=== PATIENT | male | born 1945 | race Caucasian/White ===

== ENCOUNTER 2017-01-04 21:49 | Inpatient (IN) | payer BC ==
--- NOTE | ~2017-01-04 | CN ---
Consultation Report [facility] [address] [place]. [address] NAME: COY CATALAN : 43 STATUS : ADM Zaina PAT#: [id number] AGE: 71 ADM/REG DATE : 01/04/17 MR#: [id number] REPORT SERV DATE: 01/05/17 DICTATED BY: GARCIA RODRÍGUEZ DATE: 01/05/17 REPORT STATUS : Draft TRANSCRIBED BY: MODPj DATE: 01/05/17 DATE OF CONSULTATION: REASON FOR CONSULTATION: Mr. Coy Catalan is a 71-year-old male, who is referred for increasing dyspnea with minor chest pain. CVG PHYSICIAN: Coy Gomez M.D. HISTORY OF PRESENT ILLNESS: Approximately one week ago, he began to develop more shortness of breath. This crescendoed and today, he was very short of breath and came to emergency room. He was found to be in volume overload. During this time, he said he had a little bit of chest pain, he said it was fleeting in his left chest. Did not seem to be related to any specific activity, time, or pattern. His primary complaint was shortness of breath. REVIEW OF SYSTEMS: Negative for fever, chills, lower extremity edema, orthopnea, palpitations, syncope, or presyncope. Rest is negative. SOCIAL HISTORY: He is a former smoker. Family is in attendance. He is fairly inactive. FAMILY HISTORY: Primarily positive for COPD. PHYSICAL EXAMINATION: VITAL SIGNS: Blood pressure is 127/62, pulse is 52. He currently is afebrile. GENERAL: Resting comfortably in bed. Nutritional status appears adequate. EYES: PERRLA. LUNGS: No labored use of accessory muscles. Without rales or wheezes. COR: PMI is not displaced. No thrills or heaves. NL S1 and S2. No S3, murmur, click, or rub. PULSES: Carotids without bruits. ABD: +BS, nontender. EXT: No cyanosis, clubbing, or edema. SKIN: No petechiae. NEURO: Alert and oriented. Does not appear anxious or depressed. LABORATORY EVALUATION: 1. Creatinine is 3. 2. Troponin is 0.1 and has not changed, we will check one in the morning. 3. EKG shows right bundle-branch block with no acute changes. ASSESSMENT: At this time, he has significant risk factors for coronary disease, but no clear anginal pattern. We will start a baby aspirin at this time. Elevated troponin is probably secondary to renal insufficiency. Defer diuresis to Nephrology. Consultation Report [place] [place] [id number] [place]. [address] NAME: COY CATALAN : 43 STATUS : ADM Zaina PAT#: [id number] AGE: 71 ADM/REG DATE : 01/04/17 MR#: [id number] REPORT SERV DATE: 01/05/17 DICTATED BY: GARCIA RODRÍGUEZ DATE: 01/05/17 REPORT STATUS : Draft TRANSCRIBED BY: LUCI DATE: 01/05/17 JOHN/LUCI Garcia Rodríguez M.D. / [id number] CC: Berenice Aguilar Jr, M.D.
--- NOTE | ~2017-01-04 | HP ---
History And Physical [place] [id number] [facility] [place]. [address] NAME: COY VALVERDE : 43 STATUS : ADM Zaina PAT#: [id number] AGE: 71 ADM/REG DATE : 01/04/17 MR#: [id number] REPORT SERV DATE: 01/05/17 DICTATED BY: SYEDA CHANDRA JR DATE: 01/04/17 REPORT STATUS : Draft TRANSCRIBED BY: MODPj DATE: 01/04/17 DATE OF ADMISSION: 01/04/2017 CHIEF COMPLAINT: Shortness of breath. HISTORY: A 71-year-old male, who has been experiencing trouble with increasing shortness of breath over the last several weeks, though he has shortness of breath on a chronic basis and is labeled as having COPD. He sees Dr. Coy Gomez on a regular basis, but the patient states he just sees him for a checkup, patient is not aware of cardiovascular disease issues. He is a reformed smoker. He carries a diagnosis of chronic obstructive pulmonary disease and is on several inhalers. Today, because of the progression of shortness of breath, he presented to the [facility] Emergency Department, where the attending physician there felt that it was important that he be evaluated for cardiovascular disease activity. Troponin was 0.01. EKG is compromised by the presence of a bundle-branch block. Gentleman this evening clearly states this is more of a shortness of breath issue, though and his history to other examiners, there has been a suspicion of chest pain or chest heaviness. He denies arm radiation, jaw pain, nausea or vomiting, diaphoresis, syncope or near syncope. He also denies orthopnea and PND. He has no lower extremity edema. He still makes pretty good urinary output and is on a loop and distally acting diuretic. He is a diabetic taking some insulin. He is on antihypertensive agents. He states he has never been diagnosed with heart attack. He does not know what the cause of his kidney failure is. The duration of diabetes is indeterminate. MEDICATIONS: Include amlodipine, aspirin, PhosLo, vitamin D, clonidine, doxazosin, Lexapro, iron sulfate, furosemide, gabapentin, hydralazine, Tresiba, Combivent, loratadine, metolazone, montelukast, omeprazole, oxycodone, pravastatin, tramadol. ALLERGIES: STATED TO ROBAXIN. FAMILY HISTORY: Unclear about cardiovascular disease, no ESRD or diabetes. SOCIAL HISTORY: Reformed smoker. Retired. . REVIEW OF SYSTEMS: Not otherwise identifiable for head, neck, other pulmonary, other cardiac, GI, , musculoskeletal, neurological, integumentary, psychiatric, or genitourinary complaints. PHYSICAL EXAMINATION: GENERAL: Obese, white male, who is awake, alert, oriented, in no acute distress. He is sitting up on the side of the bed in no acute distress. There is no increased work of breathing, though he is wearing supplemental oxygen at my direction. HEENT: Cranium is normocephalic. No alopecia. Pupils are equal. No scleral icterus. No arcus senilis. No conjunctival injection. No periorbital edema. No epistaxis or other nasal discharge. Nares are patent. Face is symmetrical. Oropharynx with moist mucous membranes. Dental repair fair. History And Physical [address] [address] NAME: COY VALVERDE : 43 STATUS : ADM Zaina PAT#: [id number] AGE: 71 ADM/REG DATE : 01/04/17 MR#: [id number] REPORT SERV DATE: 01/05/17 DICTATED BY: SYEDA CHANDRA JR DATE: 01/04/17 REPORT STATUS : Draft TRANSCRIBED BY: LUCI DATE: 01/04/17 NECK: No carotid bruits heard. Venous distention not seen, but he is at 90 degrees. Adenopathy is not felt. Trachea is midline. Range of motion is good. LUNGS: Clear to auscultation, though the breath sounds may be somewhat diminished. Air entry is symmetrical. There is no increased work of breathing. No adventitial sounds. No cough. HEART: Tones regular, though the heart sounds are muffled/distant. Gallop or rub is not appreciated. ABDOMEN: Protuberant, soft, nontender without visceromegaly being palpable. There is no guarding or tenderness. Liver edge is not distended. Bruits are not heard. GENITALIA: Deferred. BACK: Tender to palpation over the lower lumbar. EXTREMITIES: With no edema, turgor are fair, no cyanosis or clubbing is appreciated. NEUROLOGICAL: Strength appears symmetrical. Gait is not currently tested. Cognition and speech are normal. Facial symmetry is present. Moves all. DTRs diminished at the knee jerks. PSYCHIATRIC: Affect is normal, he interacts well with examiner. Laboratory data is reviewed. Troponin was 0.01. EKG right bundle-branch block. Chest x- ray, I have not currently viewed. ASSESSMENT: 1. Plus/minus chest pain, plus/minus dyspnea. 2. Unknown cardiac substrate. 3. Chronic obstructive pulmonary disease. 4. End-stage renal disease. PLAN: Topical nitrates. Aspirin has been administered. Intravenous heparin protocol. Serial studies. Cardiology evaluation. DF/MODL Syeda Chandra Jr, M.D. / [id number] CC: Syeda Chandra Jr, M.D. Berenice Ware M.D.
--- NOTE | ~2017-01-04 | DS ---
Discharge Summary [facility] [address] [place]. [address] NAME: COY VALVERDE : 43 STATUS : DIS IN PAT#: [id number] AGE: 71 ADM/REG DATE : 01/04/17 MR#: [id number] REPORT SERV DATE: 01/12/17 DICTATED BY: SYEDA CHANDRA JR DATE: 01/11/17 REPORT STATUS : Draft TRANSCRIBED BY: LUCI DATE: 01/11/17 Data Collection from hospitalization DISCHARGE DIAGNOSES: 1. Dyspnea. 2. End-stage renal disease. 3. Chronic obstructive pulmonary disease. 4. Chronic diastolic congestive heart failure. 5. Diabetes mellitus type 2. 6. Hypertension. CONSULTATIONS: Garcia Rodríguez M.D. PROCEDURES PERFORMED: None. MEDICATIONS: Norvasc 10 mg daily, aspirin 81 mg daily, Ultram 50 mg at bedtime, Apresoline 75 mg three times a day, Refresh one drop each eye every two hours as needed, SSD 1% apply twice daily as needed, vitamin D 2000 units daily, Claritin 10 mg at bedtime, Lexapro 10 mg daily, Lasix 80 mg with breakfast and lunch, Neurontin 100 mg at bedtime, Tresiba FlexTouch 30 units subcutaneously at bedtime, Combivent one puff four times daily as needed, Singulair 10 mg at bedtime, Prilosec 20 mg at bedtime, Pravachol 40 mg at bedtime, Roxicodone 30 mg three times daily, testosterone cypionate 200 mg IM every 14 days, ferrous sulfate 325 mg twice daily, PhosLo 667 mg with meals, and Zaroxolyn 5 mg every Saturday and Saturday. CONDITION AT DISCHARGE: Upon discharge, he did appear to be feeling much better and had no new complaints noted. DISPOSITION: He had been discharged home to continue a renal diabetic diet as he was on prior to hospitalization. He was to have activity as tolerated. He was to follow up with Dr. Coy Gomez as instructed. HOSPITAL COURSE: This 71-year-old male had been experiencing trouble with increasing shortness breath over the last several weeks, though he had shortness of breath on a chronic basis and was labeled as having COPD. He sees Dr. Coy Gomez on a regular basis, but the patient stated that he just sees him for a checkup. He was not aware of cardiovascular disease issues. He was a reformed smoker. He carries diagnosis of chronic obstructive pulmonary disease and was on several inhalers. On the day of admission because of progression of shortness of breath, he presented to [facility] Emergency Department where the attending physician there felt that it was important that he be evaluated for cardiovascular disease activity. Troponin was at 0.01. EKG was compromised by the presence of a bundle-branch block. The gentleman this evening clearly stated that this was more of a shortness of breath issue though and his history to other examiners there had been a suspicion of chest pain or chest heaviness. He denied arm radiation, jaw pain, nausea or vomiting, diaphoresis, syncope or near syncope. He also denied orthopnea or PND. He had no lower extremity edema. He still made pretty good urinary output and was on loop and distally acting diuretic. He was diabetic, taking some insulin. He was on antihypertensive agents as well. He was admitted to the hospital for further evaluation and treatment. Upon admission to the hospital, he had been placed on chest pain CPOU orders. He was begun on Discharge Summary [address] [address] NAME: COY VALVERDE : 43 STATUS : DIS IN PAT#: [id number] AGE: 71 ADM/REG DATE : 01/04/17 MR#: [id number] REPORT SERV DATE: 01/12/17 DICTATED BY: SYEDA CHANDRA JR DATE: 01/11/17 REPORT STATUS : Draft TRANSCRIBED BY: LUCI DATE: 01/11/17 oxygen at 2 liters by nasal cannula. He had been placed on 1 inch of nitroglycerin paste every six hours. He was begun on a renal diet. He had been placed on clonidine 0.1 mg three times a day, amlodipine 10 mg, hydralazine 75 mg three times daily, Roxicodone 30 mg three times daily as needed, and tramadol 50 mg at bedtime. He was begun on cardiovascular heparin drip. Following the day of admission, he was afebrile and his vital signs were stable. He was continued on supportive care and had no new complaints noted. He had also been evaluated by Dr. Garcia Rodríguez of Cardiology. He noted the patient's creatinine was at 3 and that his troponin was still at 0.1 and had not changed. He did note that the patient had no clear anginal pattern. He had started the patient on a baby aspirin and did feel that the elevated troponin was probably secondary to renal insufficiency and recommended deferring diuresis to Nephrology. On 01/06/2017, he had no complaints of chest pain and did appear to be doing well. He was still continued on his current medications and had no complaints of chest pain noted. His creatinine was at 3.25. He had been placed on Lopressor 25 mg twice daily by Dr. Garcia Rodríguez. He did remain in stable condition, and as he had no further chest pain or shortness of breath and he continued to do well, he was then discharged on 01/07/2017 with the above instructions. Information collected by: Esther FosterI.T. I submit the above information as my discharge summary. NARCISO/TIMMYL Syeda Chandra Jr, M.D. / [id number] CC: Bereince Aguilar Jr, M.D. Gordon Graham, M.D.
[~2017-01-04 21:49] MED LIST: ACIPHEX PO; ALTOREX150 MG PO; APRES50 PO; ASA5GR PO; ASAB PO; ASAEC PO; AT25 PO; ATEN25 PO; AUG500 PO; AUG875 PO; B121000P IM; B121000P PO; BALSAM PERU; CARDU2 PO; CARDU4 PO; CARDURA8 MG PO; CASTOR; CAT1 PO; CAT2 PO; CELEXA20 PO; CLARIT10 PO; CLEOCIN300 MG PO; COMBIVENT INH; COMBIVENT RESPIM4 GM INH; COREG3 PO; CYMBALTA30 PO; CYMBALTA60 PO; DEPO-TESTOS200 MG/ML IM; DIABETA5 PO; DIOV160 PO; DIOV80 PO; DURA25 TOP; DURICEF PO; FERROUS SULF325 M1 PO; FLOMAX4 PO; FLOVENT110 INH; GLUCOTRO10 PO; GLUCOTROL5 PO; HALF81 PO; KLONO1 PO; KLONO5 PO; KLONOPIN WAF0.125 MG PO; L20 PO; L40 PO; L80 PO; LANTUS SC; LEVEMIR SC; LEXAPRO10 PO; METHOC500B PO; MSCONT100 PO; MSCONT15 PO; MSCONT60 PO; MSCONTIN PO; MYCOLOG II CREA15 GM TOP; MYCOSCROI TOP; NEUR100 PO; NEUR300 PO; NO MED LIST; NORV10 PO; NORV5 PO; NOVOLOG SC; NOVOPEN SC; OXYCON20 PO; OXYCON40 PO; OXYCONTIN30 MG PO; PAXIL40 MG PO; PCET PO; PERCOCET1 TA4 PO; PHOSLO PO; PR25 PO; PRAV10 PO; PRAVACHOL40 MG PO; PRILO PO; PROTONIX PO; PROVIGIL2 PO; REFRESH OPH SO0.3 ML OPH; ROXICODONE30 MG PO; SILVADENE1 % TOP; SINGULAIR1 PO; SPIRO25 PO; SSD 1% TOP; SYMBICORT 160/41 INH INH; T200 PO; TESTOST CYP100 MG/ML IM; TESTOST ENA200 MG/ML IM; THEOCHRON200 MG PO; TRANDAT100 PO; TRESIBA FL200 UNIT/1 SC; ULTRAM50 PO; UNIPHYL 400 MG400 MG PO; VIB100 PO; VIT B12 INJ; VITAMIN D2000 UNIT PO; VITAMIN D31000 UNIT PO; WILL BRING LIST; Z5 PO; ZANAFLEX 4 MG TA4 MG PO; [UNRECOGNIZED DRUG - CODE] PO; [UNRECOGNIZED DRUG - OTHER] INH
[2017-01-04 23:23] LABS: A/G RATIO 0.7 (0.7-1.9); BUN (BLOOD UREA NITROGEN) 26 MG/DL (6-23); CALCIUM, SERUM 8.1 MG/DL (8.5-10.4); CHLORIDE, SERUM 99 MMOL/L (96-112); CO2 (CARBON DIOXIDE) 29 MMOL/L (24-34); CREATININE 3.25 MG/DL (0.70-1.30); GFR AFRICAN AMERICAN 21 ML/MIN (>=60); GFR NON AFRICAN AMERICAN 18 ML/MIN (>=60); GLOBULIN 4.3 G/DL (2.5-4.1); POTASSIUM, SERUM 3.8 MMOL/L (3.5-5.3); SGPT(ALT) 16 U/L (5-65); SODIUM, SERUM 135 MMOL/L (135-148); TOTAL BILIRUBIN 0.4 MG/DL (0-1.2); TOTAL PROTEIN 7.3 G/DL (6.0-8.5)
[2017-01-04 23:24] LABS: ALKALINE PHOSPHATASE 64 U/L (45-117); GLUCOSE, SERUM 118 MG/DL (60-99); SGOT(AST) 15 U/L (5-40)
[2017-01-06 08:07] LABS: BASOPHILS 0.3 %; BASOPHILS ABSOLUTE 0.03 10/3/uL (0.0-0.16); EOSINOPHILS 3.2 %; EOSINOPHILS ABSOLUTE 0.35 10/3/uL (0.0-0.53); HEMOGLOBIN 9.6 g/dL (13.6-17.8); IMMATURE GRANULOCYTES 0.4 %; IMMATURE GRANULOCYTES ABSOLUTE 0.04 10/3/uL (0.0-0.11); LYMPHOCYTES 23.5 %; LYMPHOCYTES ABSOLUTE 2.57 10/3/uL (0.67-4.30); MEAN CORPUSCULAR HEMOGLOB 31.6 pg (26.0-34.0); MEAN CORPUSCULAR VOLUME 95.7 fL (80-100); MEAN PLATELET VOLUME 9.5 fL (9.2-13.0); MONOCYTES 5.3 %; MONOCYTES ABSOLUTE 0.58 10/3/uL (0.21-1.20); NEUTROPHILS 67.3 %; NEUTROPHILS ABSOLUTE 7.38 10/3/uL (2.02-8.40); PLATELET COUNT 302 10/3/uL (150-400); RBC DISTRIBUTION WIDTH 14.1 % (12.0-16.0); RED CELL COUNT 3.04 10/6/uL (4.7-6.1)
[2017-01-06 08:10] LABS: HEMATOCRIT 29.1 % (40.0-51.0)
[2017-01-06 08:11] LABS: MANUAL DIFF NO %
[2017-01-06 08:22] LABS: ALBUMIN 2.8 G/DL (3.5-5.0); CALCIUM, SERUM 7.4 MG/DL (8.5-10.4); CHLORIDE, SERUM 95 MMOL/L (96-112); CO2 (CARBON DIOXIDE) 29 MMOL/L (24-34); POTASSIUM, SERUM 3.7 MMOL/L (3.5-5.3); SODIUM, SERUM 134 MMOL/L (135-148)
[2017-01-06 08:23] LABS: BUN (BLOOD UREA NITROGEN) 50 MG/DL (6-23); CREATININE 5.45 MG/DL (0.70-1.30); GFR AFRICAN AMERICAN 11 ML/MIN (>=60); GFR NON AFRICAN AMERICAN 10 ML/MIN (>=60); GLUCOSE, SERUM 78 MG/DL (60-99); PHOSPHORUS, SERUM 6.3 MG/DL (2.5-4.5); TROPONIN I 0.07 NG/ML (<0.05)
[2017-01-07 12:55] LABS: BASOPHILS 0.3 %; BASOPHILS ABSOLUTE 0.02 10/3/uL (0.0-0.16); EOSINOPHILS 2.2 %; EOSINOPHILS ABSOLUTE 0.14 10/3/uL (0.0-0.53); HEMATOCRIT 28.3 % (40.0-51.0); HEMOGLOBIN 9.6 g/dL (13.6-17.8); IMMATURE GRANULOCYTES 0.6 %; IMMATURE GRANULOCYTES ABSOLUTE 0.04 10/3/uL (0.0-0.11); LYMPHOCYTES 26.1 %; LYMPHOCYTES ABSOLUTE 1.64 10/3/uL (0.67-4.30); MANUAL DIFF NO %; MEAN CORPUS HGB CONC 33.9 g/dL (32.0-36.0); MEAN CORPUSCULAR HEMOGLOB 32.1 pg (26.0-34.0); MEAN CORPUSCULAR VOLUME 94.6 fL (80-100); MEAN PLATELET VOLUME 9.3 fL (9.2-13.0); MONOCYTES 4.3 %; MONOCYTES ABSOLUTE 0.27 10/3/uL (0.21-1.20); NEUTROPHILS 66.5 %; NEUTROPHILS ABSOLUTE 4.17 10/3/uL (2.02-8.40); PLATELET COUNT 279 10/3/uL (150-400); RED CELL COUNT 2.99 10/6/uL (4.7-6.1); WHITE BLOOD CELLS 6.3 10/3/uL (4.5-10.5)
[2017-01-07 13:07] LABS: BUN (BLOOD UREA NITROGEN) 70 MG/DL (6-23); CALCIUM, SERUM 7.2 MG/DL (8.5-10.4); CHLORIDE, SERUM 91 MMOL/L (96-112); CO2 (CARBON DIOXIDE) 25 MMOL/L (24-34); GFR AFRICAN AMERICAN 9 ML/MIN (>=60); GFR NON AFRICAN AMERICAN 8 ML/MIN (>=60); GLUCOSE, SERUM 141 MG/DL (60-99); PHOSPHORUS, SERUM 7.4 MG/DL (2.5-4.5); POTASSIUM, SERUM 4.2 MMOL/L (3.5-5.3); SODIUM, SERUM 130 MMOL/L (135-148)
[2017-01-07] MEDS ORDERED: KLONO5 PO (16:42)
[2017-03-15] MEDS ORDERED: CAT1 PO (13:06)
[2017-03-15] MEDS ORDERED: CARDU4 PO (13:07)
[2017-03-15] MEDS ORDERED: BUSPAR10 PO (13:16)
[2017-03-15] MEDS ORDERED: BUTRANS1 EAC1 TOP (13:17)
[2017-03-15] MEDS ORDERED: DIOV160 PO (13:19)
== END 2017-01-07 17:07 | disposition home or self-care (01) | DRG 190 ==
LOC: 2SO 21:49
PROVIDERS: Internal Medicine Nephrology; Registered Nurse
PROC: 5A1D60Z (ICD-10-PCS; principal; 2017-01-07)
DX: J44.9 Chronic obstructive pulmonary disease, unspecified (principal); N18.6 End stage renal disease; I50.32 Chronic diastolic (congestive) heart failure; I12.0 Hypertensive chronic kidney disease with stage 5 chronic kidney disease or end stage renal disease; I48.91 Unspecified atrial fibrillation; R00.1 Bradycardia, unspecified; E11.22 Type 2 diabetes mellitus with diabetic chronic kidney disease; I45.10 Unspecified right bundle-branch block; F41.9 Anxiety disorder, unspecified; R07.9 Chest pain, unspecified; I45.4 Nonspecific intraventricular block; Z82.5 Family history of asthma and other chronic lower respiratory diseases; Z99.2 Dependence on renal dialysis; Z79.4 Long term (current) use of insulin; Z88.1 Allergy status to other antibiotic agents; Z87.891 Personal history of nicotine dependence
CPT/HCPCS: 80053; 80069; 82962; 83735; 84484; 85025; 85730; 93005; A9270-GY; G0257; J3475